=== PATIENT | female | born 2000 | race Caucasian/White ===

== ENCOUNTER 2021-12-13 18:13 | Emergency (ER) | payer OTHER ==
[~2021-12-13] VITALS: Ht 167.6 cm; Wt 77.9 kg
[2021-12-13 18:14] VITALS: BP 156/78
== END 2021-12-14 00:13 | disposition home or self-care (01) ==
LOC: M ED 18:13
DX: O28.8 Other abnormal findings on antenatal screening of mother (principal); R10.2 Pelvic and perineal pain; Z87.42 Personal history of other diseases of the female genital tract; Z91.018 Allergy to other foods; Z3A.15 15 weeks gestation of pregnancy

== ENCOUNTER → 2023-08-26 | Outpatient (CLI) | payer OTHER ==
[2023-08-26 19:12] LABS: HEMOGLOBIN 11.5 g/dl (12.0-15.5); MEAN CORPUSCULAR HEMOGLOBIN 27.6 pg (27.0-33.0); MEAN CORPUSCULAR HGB CONC 33.8 g/dl (32.0-36.5); MEAN CORPUSCULAR VOLUME 81.7 fl (80.0-96.0); PLATELET COUNT, AUTOMATED 227 10^3/uL (150-450); RED BLOOD COUNT 4.16 10^6/uL (4.00-5.40); WHITE BLOOD COUNT 8.8 10^3/uL (4.0-10.0)
[2023-08-26 19:41] LABS: HIV 1&2 SCREEN NEGATIVE (NEGATIVE)
[2023-08-26 19:50] LABS: HEPATITIS C VIRUS ABY INDEX < 0.02 INDEX (<0.8)
== END ==
LOC: M PLALAB 15:28
PROVIDERS: ATTEND Specialist
DX: Z34.81 Encounter for supervision of other normal pregnancy, first trimester (principal); Z3A.00 Weeks of gestation of pregnancy not specified

== ENCOUNTER → 2023-08-26 | Outpatient (REF) | payer OTHER ==
[2023-08-26 11:59] LABS: GC DNA AMPLIFICATION NEGATIVE (NEGATIVE)
== END ==
LOC: M SFHCWAGY 09:39
PROVIDERS: ATTEND Specialist
DX: Z34.81 Encounter for supervision of other normal pregnancy, first trimester (principal)

== ENCOUNTER → 2023-10-06 | Outpatient (CLI) | payer OTHER | LOC: M RAD 14:01 | PROVIDERS: ATTEND Obstetrics & Gynecology | DX: Z34.82 Encounter for supervision of other normal pregnancy, second trimester (principal) ==

== ENCOUNTER 2024-02-16 15:51 | Outpatient (CLI) | payer OTHER ==
[~2024-02-16] VITALS: Ht 167.6 cm; Wt 70.7 kg
[2024-02-16] MEDS ORDERED: PRENTAB9 PO (16:32)
[2024-02-16] MEDS ORDERED: HOME MED LIST COMPLETE! XX SCH (16:35)
== END 2024-02-16 17:29 | disposition home or self-care (01) ==
LOC: M LDO 15:51
PROVIDERS: ATTEND Advanced Practice Midwife
DX: O47.1 False labor at or after 37 completed weeks of gestation (principal); O09.33 Supervision of pregnancy with insufficient antenatal care, third trimester; Z3A.38 38 weeks gestation of pregnancy
CPT/HCPCS: 59025; 76815; 87081; 87186; G0463

== ENCOUNTER 2024-02-17 03:09 | Inpatient (IN) | payer OTHER ==
[~2024-02-17] VITALS: Ht 167.6 cm; Wt 70.5 kg
[~2024-02-17 03:09] MED LIST: PRENTAB9 PO
[2024-02-17] MEDS ORDERED: CARBOPROST TROMETHAMINE 250 MCG/ML AMP IM PRN (03:20)
[2024-02-17] MEDS ORDERED: LR 1,000 ML IV SCH (03:20)
[2024-02-17] MEDS ORDERED: METHYLERGONOVINE MALEATE 0.2MG/ML 1ML VIAL IM PRN (03:20)
[2024-02-17] MEDS ORDERED: OXYTOCIN DRIP 30 UNITS in IV 1 EA IV PRN (03:20)
[2024-02-17] MEDS ORDERED: TRANEXAMIC ACID INJection 1,000 MG in NS 100 ML IV PRN (03:20)
[2024-02-17] MEDS ORDERED: LIDOCAINE 1% MDV 20ML VIAL INFIL PRN (03:20)
[2024-02-17] MEDS ORDERED: OXYTOCIN 30UNITS IN 0.9% NaCl 500ML IV BAG As Ordered ONE (03:22)
[2024-02-17] MEDS: PENICILLIN G POTASSIUM 5 MU IV 5 MU in DEXTROSE 5% (D5W) MINI-BAG PLU 100 ML IV STA (03:44)
[2024-02-17 03:54] LABS: HEMATOCRIT 29.9 % (36.0-47.0); HEMOGLOBIN 9.6 g/dl (12.0-15.5); MEAN CORPUSCULAR HEMOGLOBIN 23.6 pg (27.0-33.0); MEAN CORPUSCULAR HGB CONC 32.1 g/dl (32.0-36.5); MEAN CORPUSCULAR VOLUME 73.5 fl (80.0-96.0); PLATELET COUNT, AUTOMATED 185 10^3/uL (150-450); RED BLOOD COUNT 4.07 10^6/uL (4.00-5.40); WHITE BLOOD COUNT 10.6 10^3/uL (4.0-10.0)
[2024-02-17 06:19] LABS: HIV 1&2 SCREEN NEGATIVE (NEGATIVE)
[2024-02-17 06:26] LABS: HEPATITIS C VIRUS ABY INDEX < 0.02 INDEX (<0.8)
[2024-02-17] MEDS ORDERED: PEN G POT 3,000,000 UNIT/50 ML 3,000,000 UNIT in IV 1 EA IV SCH (07:45)
[2024-02-17 08:38] VITALS: BP 108/64
[2024-02-17 08:45] VITALS: BP 117/66
[2024-02-17] MEDS ORDERED: RHOGAM 300MCG (1500IU) INJ IM SCH (09:00)
[2024-02-17] MEDS ORDERED: ANUSOL HC CREAM 30GM TOP PRN (09:00)
[2024-02-17] MEDS: [UNRECOGNIZED DRUG - REMARK] XX SCH (09:00)
[2024-02-17] MEDS ORDERED: ACETAMINOPHEN 500 MG TAB PO PRN (09:00)
[2024-02-17] MEDS ORDERED: MOM 30ML SUSPENSION UDC PO PRN (09:00)
[2024-02-17] MEDS ORDERED: DOCUSATE SODIUM 100MG CAPSULE PO PRN (09:00)
[2024-02-17] MEDS ORDERED: ACETAMINOPHEN 325 MG TAB PO PRN (09:00)
[2024-02-17] MEDS ORDERED: medroxyPROGESTERone ACET IM SUSP 150 MG/ML VIAL IM ONE (09:05)
[2024-02-17] MEDS: IBUPROFEN 800 MG TAB PO PRN (10:01)
[2024-02-17 11:00] VITALS: BP 113/57; O2SAT 99
[2024-02-17] MEDS: PRENATAL VITAMINS CHEWABLE TABLET PO SCH (13:26)
[2024-02-17 18:50] VITALS: BP 118/58; O2SAT 100
[2024-02-17] MEDS: DIBUCAINE 1% OINTMENT 30GM TOP PRN (19:33)
[2024-02-17] MEDS: IBUPROFEN 600MG TAB PO PRN (19:34)
[2024-02-18 06:00] VITALS: BP 108/57; O2SAT 100
[2024-02-18] MEDS ORDERED: IBUP-1022 PO (10:21)
[2024-02-18] MEDS: medroxyPROGESTERone ACET IM SUSP 150 MG/ML VIAL IM ONE (11:23)
[2024-02-19] MEDS ORDERED: MEASLES,MUMPS,RUBELLA VACCINE INJ (MMR-II) SC.IMMUN ONE (09:00)
== END 2024-02-18 11:35 | disposition home or self-care (01) | DRG 807 ==
LOC: M LDO 03:09 → M LDI 03:19 → M OBS 11:00
PROVIDERS: ADMIT Advanced Practice Midwife; ATTEND Advanced Practice Midwife
PROC: 10E0XZZ Delivery of Products of Conception, External Approach (ICD-10-PCS; principal; 2024-02-17)
PROC: 10907ZC Drainage of Amniotic Fluid, Therapeutic from Products of Conception, Via Natural or Artificial Opening (ICD-10-PCS; 2024-02-17)
DX: O80 Encounter for full-term uncomplicated delivery (principal); Z37.0 Single live birth; Z3A.38 38 weeks gestation of pregnancy

== ENCOUNTER 2024-04-22 21:19 | Emergency (ER) | payer OTHER ==
[~2024-04-22] VITALS: Ht 167.6 cm; Wt 56.9 kg
[~2024-04-22 21:19] MED LIST changes: +IBUP-1022 PO
[2024-04-22 21:45] LABS: KETONE, URINE MANUAL REFLEX NEGATIVE (NEGATIVE); NITRITE, URINE MANUAL RFX NEGATIVE (NEGATIVE); PROTEIN, URINE MANUAL REFLEX 3+ mg/dL (NEGATIVE); SP GRAVITY,URINE MANUAL REFLEX 1.015 (1.002-1.035); UROBILINOGEN, UA MANUAL REFLEX NORMAL (NORMAL)
[2024-04-22 21:48] LABS: HYALINE CAST, URINE RFX NONE SEEN /lpf (0-1); MICROSCOPIC EXAM RFX PERFORMED; RBC, URINE MAN REFLEX TNTC /hpf (0-3); SQUAMOUS EPITHELIAL URINE RFX SMALL AMOUNT /hpf (SMALL AMT)
[2024-04-22 22:40] VITALS: BP 130/88; TEMP 97.6; O2SAT 100
[2024-04-23] MEDS ORDERED: PYRI1TAB5 PO (13:42)
[2024-04-23] MEDS ORDERED: CIPR-249 PO (13:42)
[2024-04-23] MEDS ORDERED: NAPR-837 PO (13:42)
[2024-04-23] MEDS ORDERED: ONDA-282 PO (13:42)
== END 2024-04-23 00:35 | disposition left against medical advice (07) ==
LOC: M ED 21:19
DX: Z53.21 Procedure and treatment not carried out due to patient leaving prior to being seen by health care provider (principal)

== ENCOUNTER 2024-04-23 08:43 | Emergency (ER) | payer OTHER ==
[~2024-04-23] VITALS: Ht 167.6 cm; Wt 58.9 kg
[2024-04-23 09:30] LABS: BASO % 0.4 % (0.0-1.0); EOS # 0.1 10^3/uL (0.0-0.5); EOS % 0.7 % (0.0-3.0); HEMOGLOBIN 11.1 g/dl (12.0-15.5); LYMPH # 1.2 10^3/uL (1.5-5.0); LYMPH % 16.6 % (24.0-44.0); MEAN CORPUSCULAR HEMOGLOBIN 24.2 pg (27.0-33.0); MEAN CORPUSCULAR HGB CONC 31.7 g/dl (32.0-36.5); MEAN CORPUSCULAR VOLUME 76.4 fl (80.0-96.0); MONO # 0.5 10^3/uL (0.0-0.8); MONO % 7.1 % (2.0-8.0); NEUTROPHILS # 5.6 10^3/uL (1.5-8.5); NEUTROPHILS % 74.9 % (36.0-66.0); PLATELET COUNT, AUTOMATED 244 10^3/uL (150-450); RED BLOOD COUNT 4.58 10^6/uL (4.00-5.40); WHITE BLOOD COUNT 7.5 10^3/uL (4.0-10.0)
[2024-04-23 09:48] LABS: KETONE, URINE AUTO RFX NEGATIVE (NEGATIVE); MUCUS, URINE RFX LARGE (NEGATIVE); RBC, URINE AUTO RFX TNTC /HPF (0-3); SQUAM EPITHELIAL CELL UR AURFX 7 /HPF (0-6)
[2024-04-23 09:54] LABS: LEUKOCYTE ESTERASE UR AUTO RFX 2+ (NEGATIVE); NITRITE, URINE AUTO RFX POSITIVE (NEGATIVE); WBC, URINE AUTO RFX TNTC /HPF (0-3)
[2024-04-23 09:57] LABS: LIPASE 27 U/L (12-53)
[2024-04-23 10:00] LABS: ALBUMIN 3.7 G/DL (3.2-5.2); ALKALINE PHOSPHATASE 63 U/L (35-104); ALT/SGPT 31 U/L (7.0-40); AST/SGOT 22 U/L (<34); BILIRUBIN,DIRECT 0.6 MG/DL (<0.4); BILIRUBIN,TOTAL 2.3 MG/DL (0.3-1.2); BLOOD UREA NITROGEN 9 MG/DL (9-23); CALCIUM LEVEL 9.2 MG/DL (8.5-10.1); CARBON DIOXIDE LEVEL 24 MMOL/L (20-31); CHLORIDE LEVEL 110 MMOL/L (98-107); CREATININE FOR GFR 0.87 MG/DL (0.55-1.30); GLOMERULAR FILTRATION RATE > 60.0 (>60); GLUCOSE, FASTING 88 MG/DL (60-100); POTASSIUM SERUM 4.1 MMOL/L (3.5-5.1); SODIUM LEVEL 144 MMOL/L (136-145); TOTAL PROTEIN 6.9 G/DL (5.7-8.2)
[2024-04-23 10:05] LABS: HCG, SERUM QUALITATIVE NEGATIVE (NEGATIVE)
[2024-04-23] MEDS ORDERED: CIPR-249 PO (13:42)
[2024-04-23] MEDS ORDERED: PYRI1TAB5 PO (13:42)
[2024-04-23] MEDS ORDERED: ONDA-282 PO (13:42)
[2024-04-23] MEDS ORDERED: NAPR-837 PO (13:42)
[2024-04-23] MEDS: ONDANSETRON 4MG ORAL DISINTEGRATING TAB PO ONE (14:07)
[2024-04-23] MEDS: PHENAZOPYRIDINE 100 MG TAB PO ONE (14:08)
[2024-04-23] MEDS: ACETAMINOPHEN 325 MG TAB PO ONE (14:09)
[2024-04-23 14:17] VITALS: BP 111/65; TEMP 97.8; O2SAT 100
== END 2024-04-23 14:19 | disposition home or self-care (01) ==
LOC: M ED 08:43
DX: R10.32 Left lower quadrant pain (principal); N39.0 Urinary tract infection, site not specified; N20.0 Calculus of kidney; F41.9 Anxiety disorder, unspecified; F32.A Depression, unspecified; Z91.018 Allergy to other foods; Z79.2 Long term (current) use of antibiotics; Z79.899 Other long term (current) drug therapy; Z79.83 Long term (current) use of bisphosphonates

== ENCOUNTER 2024-06-16 09:38 | Day surgery (SDC) | payer OTHER, BC ==
[~2024-06-16] VITALS: Ht 167.6 cm; Wt 55.6 kg
[~2024-06-16 09:38] MED LIST changes: +CIPR-249 PO; +DEPO150I12 IM; +NAPR-837 PO; +ONDA-282 PO; +PYRI1TAB5 PO
[2024-06-16 10:23] LABS: HEMATOCRIT 37.6 % (36.0-47.0); HEMOGLOBIN 11.9 g/dl (12.0-15.5); MEAN CORPUSCULAR HEMOGLOBIN 24.9 pg (27.0-33.0); MEAN CORPUSCULAR HGB CONC 31.6 g/dl (32.0-36.5); MEAN CORPUSCULAR VOLUME 78.7 fl (80.0-96.0); PLATELET COUNT, AUTOMATED 249 10^3/uL (150-450); RED BLOOD COUNT 4.78 10^6/uL (4.00-5.40); WHITE BLOOD COUNT 5.1 10^3/uL (4.0-10.0)
[2024-06-16] MEDS: LR 1,000 ML IV SCH (10:26)
[2024-06-16] MEDS ORDERED: propofoL 200 MG/20 ML VIAL As Ordered ONE (10:53)
[2024-06-16] MEDS ORDERED: ACETAMINOPHEN 1000MG/100ML IV BAG As Ordered ONE (10:53)
[2024-06-16] MEDS ORDERED: fentaNYL 100 MCG/2 ML INJECTION As Ordered ONE (10:53)
[2024-06-16] MEDS ORDERED: MIDAZOLAM INJ 2MG/2ML VIAL As Ordered ONE (10:53)
[2024-06-16] MEDS ORDERED: LIDOCAINE 2% 100MG/5ML SDV (FOR ANES.) As Ordered ONE (10:53)
[2024-06-16] MEDS ORDERED: ONDANSETRON 4MG 2ML VIAL As Ordered ONE (10:53)
[2024-06-16] MEDS ORDERED: ROCURONIUM BROMIDE 50MG/5ML VIAL As Ordered ONE (10:58)
[2024-06-16] MEDS ORDERED: SUGAMMADEX SODIUM 500 MG/5 ML VIAL (BRIDION) As Ordered ONE (12:48)
[2024-06-16] MEDS ORDERED: KETOROLAC 30 MG/ML 1ML VIAL As Ordered ONE (12:48)
[2024-06-16] MEDS ORDERED: oxyCODONE 5MG TAB PO PRN (12:55)
[2024-06-16] MEDS ORDERED: LR 1,000 ML IV SCH (12:55)
[2024-06-16] MEDS ORDERED: ONDANSETRON 4MG 2ML VIAL IV PRN (12:55)
[2024-06-16] MEDS ORDERED: HYDROMORPHONE HCL 0.5 MG/ 0.5 ML SYRINGE IV PRN (12:55)
[2024-06-16] MEDS ORDERED: fentaNYL 100 MCG/2 ML INJECTION IV PRN (12:55)
[2024-06-16] MEDS ORDERED: MEPERIDINE 25 MG/ML 1ML VIAL IV PRN (13:20)
[2024-06-16 14:20] VITALS: BP 125/66; TEMP 97.8; O2SAT 100
== END 2024-06-16 14:35 | disposition home or self-care (01) ==
LOC: M SDC 09:38
PROVIDERS: ATTEND Obstetrics & Gynecology
DX: Z30.2 Encounter for sterilization (principal); N83.201 Unspecified ovarian cyst, right side; Z91.018 Allergy to other foods
CPT/HCPCS: 36415; 58661; 58662; 81025; 85027; 86850; 86900; 86901; 88302; 88305; J0131; J0665; J1100; J1885; J2250; J2405; J3010

== ENCOUNTER → 2024-12-14 | Outpatient (CLI) | payer OTHER ==
[~2024-12-14] MED LIST changes: -IBUP-1022 PO; +IBUP600T42 PO
== END ==
LOC: M RAD 08:27
PROVIDERS: ATTEND Registered Nurse
DX: M54.50 Low back pain, unspecified (principal); M51.46 Schmorl's nodes, lumbar region

== ENCOUNTER 2025-02-01 10:52 | Emergency (ER) | payer OTHER ==
[~2025-02-01] VITALS: Ht 167.6 cm; Wt 58.2 kg
[2025-02-01 11:35] LABS: BASO # 0.1 10^3/uL (0.0-0.2); BASO % 0.8 % (0.0-1.0); EOS # 0.1 10^3/uL (0.0-0.5); EOS % 2.2 % (0.0-3.0); LYMPH # 1.5 10^3/uL (1.5-5.0); LYMPH % 24.6 % (24.0-44.0); MONO # 0.5 10^3/uL (0.0-0.8); MONO % 8.1 % (2.0-8.0); NEUTROPHILS # 3.8 10^3/uL (1.5-8.5); NEUTROPHILS % 64.0 % (36.0-66.0); PLATELET COUNT, AUTOMATED 286 10^3/uL (150-450)
[2025-02-01 12:17] LABS: CALCIUM LEVEL 8.9 MG/DL (8.5-10.1); CARBON DIOXIDE LEVEL 27 MMOL/L (20-31); CHLORIDE LEVEL 108 MMOL/L (98-107); CREATININE FOR GFR 0.78 MG/DL (0.55-1.30); GLOMERULAR FILTRATION RATE > 90.0 (>60); POTASSIUM SERUM 4.6 MMOL/L (3.5-5.1); SODIUM LEVEL 144 MMOL/L (136-145)
[2025-02-01 12:25] LABS: HCG, SERUM QUALITATIVE NEGATIVE (NEGATIVE)
[2025-02-01 14:54] VITALS: BP 120/61; TEMP 97.9; O2SAT 100
== END 2025-02-01 14:56 | disposition home or self-care (01) ==
LOC: M ED 10:52
DX: N92.0 Excessive and frequent menstruation with regular cycle (principal); F17.200 Nicotine dependence, unspecified, uncomplicated; Z91.018 Allergy to other foods; Z79.899 Other long term (current) drug therapy

== ENCOUNTER → 2025-02-07 | Outpatient (CLI) | payer OTHER | LOC: M PLAIMG 06:58 | PROVIDERS: ATTEND Nurse Practitioner Family | DX: M54.2 Cervicalgia (principal) ==